=== PATIENT | female | born 1960 | race Caucasian/White ===

== ENCOUNTER 2025-05-23 16:31 | Emergency (ER) | payer OTHER, SELFPAY ==
[2025-05-23 16:32] VITALS: BP 147/87; PULSE 86; RESP 15; TEMP 36.8; O2SAT 96; BMI 16.9
--- NOTE | 2025-05-23 16:36 | ED.RN ---
Patricia from crisis at bedside. Patient is agitated stating, "I don't do hospitals, I'm not being admitted." Patient is pinked slipped.
--- NOTE | 2025-05-23 16:58 | EDS_ITS ---
HPI HPI - Psych History of Present Illness Chief Complaint: Suicidal Informant: patient Onset/Context/Timing Onset: Days Timing: Continuous Current Severity: Moderate Maximum Severity: Moderate Associated Symptoms Associated Symptoms - Psych: Positive for Depressed and Suicidal Thoughts Specific plan (suicidal thought): Asphyxiate herself with helium Narrative Narrative: 64-year-old female history psychiatric disorder. Has had prior suicide attempts. States she is very depressed and suicidal again. She will not give any further information says she "does not do doctors". And is currently talking to the crisis personnel. Prior similar symptoms: Yes Recent Illness/Hospitalization: No PFSH PFSH Medical History (Updated 05/23/25 @ 18:11 by Sally Ga) Urinary incontinence Epilepsy Allergy/AdvReac Type Severity Reaction Status Date / Time Unable to Assess Allergy Verified 05/23/25 21:21 Social History (Updated 05/23/25 @ 18:11 by Sally Ga) household members: significant other Smoking Status: Never smoker ROS ROS ED ROS Narrative Denies. Patient is a very limited informant. She is not cooperative. Constitutional Constitutional ED: Reports fever(s) Eyes Eyes: Denies blurry vision ENT ENT ED: Denies ear pain Cardiovascular Cardiovascular: Denies chest pain Respiratory/Chest Respiratory/Chest: Denies cough Gastrointestinal Gastrointestinal: Denies abdominal pain Genitourinary Genitourinary ED: Denies dysuria or hematuria Musculoskeletal Musculoskeletal: Denies arthralgias Integumentary Denies abscess or Abrasions Neurologic Neurologic: Denies headache(s) Psychiatric Psychiatric: Reports depression and suicidal ideation Endocrine Endocrinology: Denies polydipsia Hematologic/Lymphatic Hematologic/Lymphatic: Denies easy bleeding, easy bruising or lymphadenopathy Allergic/Immunologic Allergic/Immunologic ED: Denies mouth swelling, tongue swelling or urticaria EXAM Physical Exam Narrative Exam Narrative: 65 female sitting upright in bed. Emotionally upset. Verbally abusive to myself. Refusing basically to talk to me and only let me do a limited exam. Crisis personnel talking to her at bedside. Vital signs are stable afebrile. H EENT exam pupils round reactive light. Mytrex membranes. No trauma. Neck no trauma. No JVD. Lungs clear to auscultation bilateral. Heart regular rhythm. No murmur. Rate about 85. Abdomen nontender. Moving all 4 extremities. Nontender no edema. Neurologically she is awake alert. Answering questions following commands. Normal speech. Const Vital Signs: 05/23/25 16:32 05/23/25 18:09 05/23/25 19:00 Temperature 98.3 F Temperature Source Oral Pulse Rate 86 87 81 Respiratory Rate 15 16 16 Blood Pressure 147/87 H 146/78 H 132/77 H Blood Pressure Mean 107 100 95 Pulse Ox 96 100 98 Oxygen Delivery Method Room Air 05/23/25 21:30 Temperature 98.2 F Temperature Source Pulse Rate 76 Respiratory Rate 16 Blood Pressure 128/74 H Blood Pressure Mean 92 Pulse Ox 99 Oxygen Delivery Method Positive well nourished and well developed; Negative for obese, cachectic, contractures or unkempt General Appearance ED: well developed, irritable and NAD; Negative for unkempt, cachectic, contractures or pallor Nutritional Appearance: Negative for cachectic or obese HEENT Reports moist mucous membranes normocephalic and atraumatic Eyes PERRL and EOMs intact bilaterally General Eye ED: Negative for pale conjunctiva Neck no lymphadenopathy, supple and no JVD General: Negative for tenderness Resp normal respiratory effort and clear to auscultation bilaterally Auscultation: Negative for rales, rhonchi or wheezes Cardio S1 normal heart sound, S2 normal heart sound and no murmurs Rate: regular rate Rhythm: regular rhythm GI non-tender, non-distended and no masses Auscultation: normoactive bowel sounds Palpation: soft; Negative for tender or guarding Back/Spine no CVA tenderness General Back: Negative for CVA tenderness Cervical Spine: Negative for cervical spine tenderness Thoracic Spine / Upper Back: Negative for thoracic spinal tenderness Lumbar Spine / Lower Back: Negative for lumbar spinal tenderness Extremity normal to inspection General Extremety ED: Negative for edema, tenderness or other findings General Extremity: Negative for edema or other findings Neuro oriented x3 and CN's II-XII intact bilaterally Sensorium / Orientation: alert, oriented to person, oriented to place and oriented to time; Negative for orientation impaired, confused or lethargic Motor Exam: strength 5/5 throughout Psych speech normal; Negative for mental status grossly normal, thought process normal, cooperative, affect normal or denies suicidal ideation Appearance: grossly normal, appropriate and well kempt; Negative for unkempt Attitude: uncooperative, guarded, agitated and aggressive Activity / Motor Behavior: appropriate eye contact Speech: normal speech Mood & Affect: depressed and irritable Thought Process: normal thought process Thought Content: suicidality Attention / Concentration: attention grossly intact Insight: insight good Judgement: judgement good Skin General Skin Exam: Negative for jaundice or pallor Lesions: no lesions Rashes: no rashes Trauma: Negative for abrasion Wounds: Negative for amputation MDM MDM MDM Narrative Medical decision making narrative: 64-year-old female depressed and suicidal. ED mental health labs and crisis evaluation suspect she will need to be transferred for admission. She has had a prior attempt in the past. Patient was given Geodon due to being very uncooperative. Hopefully to calm her down. She did tell the willow worker that she has had suicide attempts in the past. Her boyfriend is moving in the next several weeks which has her very depressed and hopeless. And she did try to commit suicide today by asphyxiating herself with helium in a bag. Currently she is uninsured and without psychiatric care but probably has a longstanding history of psychiatric illness that has either been undiagnosed or at least untreated. She is on no psychiatric meds. She will be pink slipped and they are working on psychiatric admission and transfer. Patient was treated with Geodon to calm her down and then p.o. Ativan. Patient is resting comfortably at 9:25 PM. History & Record Review Discussion w/independent historian: Patient Lab Data Attestation: I reviewed the patient's lab results. Lab results narrative: CBC shows a WBC of 12.0. H&H 14 and 42. Platelets 240. Chemistries show sodium 141. Gap 15. Normal BUN and creatinine. Glucose 101. Urine tox screen negative. Alcohol negative. Labs: Laboratory Results - last 24 hr 05/23/25 05/23/25 17:41 17:54 WBC 12.0 H RBC 4.74 Hgb 14.3 Hct 42.0 MCV 88.6 MCH 30.2 MCHC 34.0 RDW Std Deviation 39.9 RDW Coeff of Quyen 12.3 Plt Count 240 MPV 10.6 Immature Gran % (Auto) 0.400 Neut % (Auto) 73.4 H Lymph % (Auto) 19.2 [place] % (Auto) 5.7 Eos % (Auto) 0.6 Baso % (Auto) 0.7 Absolute Neuts (auto) 8.8 H Absolute Lymphs (auto) 2.31 Nucleated RBC % 0 Sodium 141 Potassium 3.7 Chloride 108 Carbon Dioxide 18.0 L Anion Gap 15 BUN 14 Creatinine 0.87 Estim Creat Clear Calc 47.75 L Est GFR (MDRD) Non-Af 75 BUN/Creatinine Ratio 16.3 Glucose 101 H Calcium 9.7 Urine Opiates Screen NEGATIVE U Buprenorphine Qual NEGATIVE Ur Oxycodone Screen NEGATIVE Urine Methadone Screen NEGATIVE Urine Fentanyl Screen NEGATIVE Ur Barbiturates Screen NEGATIVE Ur Phencyclidine Scrn NEGATIVE Ur Amphetamines Screen NEGATIVE U Benzodiazepines Scrn NEGATIVE Urine Cocaine Screen NEGATIVE U Cannabinoids Screen NEGATIVE Ethyl Alcohol < 10.1 Discharge Plan Triage Chief Complaint: Suicidal ED Provider: Steve Griffin Dx/Rx/DC Orders Clinical Impression: Depression, Suicidal ideation, Suicide attempt Primary Care Provider: Care Physician,No Primary Referrals: Care Physician,No Primary [Primary Care Provider] - Print Language: Spanish Disposition Disposition: Psychiatric Hospital or Unit Discharge Location: [facility] Dis[facility] Date/Time: 05/23/25 21:33
[2025-05-23 18:09] VITALS: BP 146/78; PULSE 87; RESP 16; O2SAT 100
[2025-05-23 18:09] LABS: Hematocrit 42.0 % (37-47); Hemoglobin 14.3 g/dL (12.0-15.0); Immature Granulocytes Count 0.050 X10^3/uL (0.0-0.0); Mean Corp Hgb Conc 34.0 g/dL (32-36); Mean Corpuscular Volume 88.6 fL (81-99); Mean Platelet Vol. 10.6 fl (6.2-12.0); NRBC Flagged by Analyzer 0 % (0-5); Platelet Count 240 K/mm3 (150-450); RBC Distribution Width CV 12.3 % (11.6-14.6); RBC Distribution Width SD 39.9 fl (35.1-43.9); Red Blood Count 4.74 M/mm3 (4.2-5.4); White Blood Count 12.0 K/mm3 (4.4-11.0)
[2025-05-23 18:35] LABS: Anion Gap 15 (5-15); BUN 14 mg/dL (4-19); BUN/Creat Ratio 16.3 RATIO (10-20); Calcium,Total 9.7 mg/dL (7.6-11.0); Carbon Dioxide 18.0 mmol/L (21.0-32.0); Chloride 108 mmol/L (98-108); Estimated Creatinine Clearance 47.75 ml/min (50-250); Glucose 101 mg/dL (70-99); Potassium 3.7 mmol/L (3.3-5.1)
[2025-05-23 18:38] LABS: Barbiturate Urine NEGATIVE (< 200 ng/mL); Benzodiazepine Urine NEGATIVE (< 200 ng/mL); PCP Urine NEGATIVE (< 25 ng/mL); THC Urine NEGATIVE (< 50 ng/mL)
[2025-05-23 19:00] VITALS: BP 132/77; PULSE 81; RESP 16; O2SAT 98
[2025-05-23 19:14] LABS: Alcohol, Blood (Medical)-Serum < 10.1 mg/dL (<=10.0)
[2025-05-23] MEDS: Ziprasidone IM 20 MG/ML VIAL IM (19:38)
--- NOTE | 2025-05-23 19:41 | PCA ---
CHART FAXED TO CRISIS
--- NOTE | 2025-05-23 19:44 | ED.RN ---
pt stands up and is pacing room. pt then comes out the door and states that she needs to leave. ED staff educates patient that she is pink slipped and unable to leave. pt states that she is tired of waiting and being here is making her worse. pt gets increasingly agitated. pt refusing to willingly take geodon to help her calm down- staff informs patient that if she will not willingly get into the bed we will have to help her into the bed. pt then gets into the bed and geodon adminstered per order.
--- NOTE | 2025-05-23 20:41 | PCA ---
PT ACCEPTED AT [facility] [address] [phone] OPT 1 LOCAL [facility] SET UP FOR TRANSPORT
[2025-05-23 21:30] VITALS: BP 128/74; PULSE 76; RESP 16; TEMP 36.8; O2SAT 99
== END 2025-05-23 21:33 ==
LOC: ED 17:57
PROVIDERS: Emergency Provider Emergency Medicine; Visit Provider Emergency Medicine
DX: T14.91XA Suicide attempt, initial encounter (principal); F32.A Depression, unspecified; Z91.51 Personal history of suicidal behavior
CPT/HCPCS: 80048; 80307; 82077; 85025; 96372; 99285; J3486